=== PATIENT | female | born 1980 | race Caucasian/White ===

== ENCOUNTER 2018-02-26 12:20 | Emergency (ER) | payer SELFPAY | END 2018-02-26 12:21 | disposition left against medical advice (07) | LOC: ED 12:20 | DX: S61.219A Laceration without foreign body of unspecified finger without damage to nail, initial encounter (principal); Z53.21 Procedure and treatment not carried out due to patient leaving prior to being seen by health care provider; X58.XXXA Exposure to other specified factors, initial encounter; Y93.89 Activity, other specified; Y92.89 Other specified places as the place of occurrence of the external cause; Y99.8 Other external cause status ==

== ENCOUNTER 2018-03-04 12:44 | Emergency (ER) | payer SELFPAY ==
[2018-03-04 13:41] LABS: Bacteria,Urine 1+ /HPF (Negative); Bilirubin,Urine NEG (Negative); Blood,Urine MOD (Negative); Color,Urine Yellow (Yellow); Mucus,Urine FEW /HPF; Urobilinogen,Urine < 2.0 mg/dL (<2.0)
[2018-03-04 13:54] LABS: RBC,Urine > 182.0 /HPF (0.0-6.0)
[2018-03-04 14:10] LABS: Hematocrit 42.8 % (30.3-42.9); Hemoglobin 14.2 gm/dl (10.1-14.3); Mean Corpuscular HGB Conc 33 % (30-34); Mean Corpuscular Hemoglobin 27 pg (28-32); Mean Corpuscular Volume 81 fl (79-97); Red Cell Distribution Width 14.4 % (13.2-15.2)
[2018-03-04 14:20] LABS: Platelet Count 266 K/mm3 (140-440)
[2018-03-04 14:26] LABS: Alanine Aminotransferase 15 units/L (7-56); Albumin 4.4 g/dL (3.9-5); BUN/Creatinine Ratio 12; Blood Urea Nitrogen 11 mg/dL (7-17); Calcium 8.9 mg/dL (8.4-10.2); Hemolysis Index 30
[2018-03-04] MEDS ORDERED: NACL 0.9% 1000 ML 1,000 ML IV ONE (14:40)
[2018-03-04] MEDS ORDERED: ZOFRAN IV ONE (14:40)
[2018-03-04] MEDS ORDERED: MORPHINE IV ONE (14:42)
[2018-03-04 15:08] LABS: Basophils % (Manual) 0 % (0.0-1.8); Eosinophils % (Manual) 0 % (0.0-4.3); Total Cells Counted 100
[2018-03-04 15:09] LABS: Anisocytosis 1+; Platelet Estimate Consistent w Auto
--- NOTE | 2018-03-04 15:45 | Emergency Department Report ---
ED Abdominal Pain HPI - General Chief Complaint: Abdominal Pain Stated Complaint: ABD PAIN Time Seen by Provider: 03/04/18 14:34 Source: patient Mode of arrival: Ambulatory Limitations: No Limitations - History of Present Illness Initial Comments: This is a 38-year-old female nontoxic, well nourished in appearance, no acute signs of distress presents to the ED with c/o of abdominal pain with nausea and vomiting that started this morning around 5 AM. Patient stated had a normal bowel movement this morning. Patient denies any radiation of pain. Patient stated pain is described as cramping with level of 3/10 and is diffuse. Patient denies any urinary symptoms. Patient denies any chest pain, shortness of breathe, fever, chills, headache, numbness or tingling. Patient denies any allergies. PMH includes appendectomy. Patient stated she is currently on her menstrual cycle. MD Complaint: abdominal pain -: This morning Location: diffuse Radiation: none Migration to: no migration Severity scale (0 -10): 3 Quality: cramping Consistency: constant Improves With: nothing Worsens With: nothing Associated Symptoms: nausea, vomiting. denies: diarrhea, fever, chills, constipation, dysuria, hematemesis, hematochezia, melena, hematuria, anorexia, syncope - Related Data LMP Date: 03/04/18 LMP (females 10-50): this week Home Medications Medication Instructions Recorded Confirmed Last Taken Pnv Plus Multivit Tab 1 tab PO DAILY 10/25/15 10/25/15 Unknown Previous Rx's Medication Instructions Recorded Last Taken Type Labetalol [Normodyne TAB] 200 mg PO BID #60 tablet 10/25/15 Unknown Rx Allergies Allergy/AdvReac Type Severity Reaction Status Date / Time No Known Allergies Allergy Verified 05/29/15 00:33 ED Review of Systems ROS: Stated complaint: ABD PAIN Other details as noted in HPI Constitutional: denies: chills, fever Eyes: denies: eye pain, eye discharge, vision change ENT: denies: ear pain, throat pain Respiratory: denies: cough, shortness of breath, wheezing Cardiovascular: denies: chest pain, palpitations Endocrine: no symptoms reported Gastrointestinal: abdominal pain, nausea, vomiting. denies: diarrhea Genitourinary: denies: urgency, dysuria, discharge Musculoskeletal: denies: back pain, joint swelling, arthralgia Skin: denies: rash, lesions Neurological: denies: headache, weakness, paresthesias Psychiatric: denies: anxiety, depression Hematological/Lymphatic: denies: easy bleeding, easy bruising ED Past Medical Hx - Past Medical History Hx Hypertension: No Hx Congestive Heart Failure: No Hx Diabetes: No Hx Deep Vein Thrombosis: No Hx Renal Disease: No Hx Sickle Cell Disease: No Hx Seizures: No Hx Asthma: No Hx COPD: No Hx HIV: No - Surgical History Hx Appendectomy: Yes - Social History Smoking Status: Never Smoker Substance Use Type: None - Medications Home Medications: Home Medications Medication Instructions Recorded Confirmed Last Taken Type Labetalol [Normodyne TAB] 200 mg PO BID #60 tablet 10/25/15 Unknown Rx Pnv Plus Multivit Tab 1 tab PO DAILY 10/25/15 10/25/15 Unknown History ED Physical Exam - General Limitations: No Limitations General appearance: alert, in no apparent distress - Head Head exam: Present: atraumatic, normocephalic - Eye Eye exam: Present: normal appearance Pupils: Present: normal accommodation - ENT ENT exam: Present: normal exam, mucous membranes moist - Neck Neck exam: Present: normal inspection, full ROM. Absent: tenderness, meningismus, lymphadenopathy - Respiratory Respiratory exam: Present: normal lung sounds bilaterally. Absent: respiratory distress, wheezes, rales, rhonchi, stridor, chest wall tenderness, accessory muscle use, decreased breath sounds, prolonged expiratory - Cardiovascular Cardiovascular Exam: Present: regular rate, normal rhythm, normal heart sounds. Absent: bradycardia, tachycardia, irregular rhythm, systolic murmur, diastolic murmur, rubs, gallop - GI/Abdominal GI/Abdominal exam: Present: soft, tenderness (diffuse), normal bowel sounds. Absent: distended, guarding, rebound, rigid, diminished bowel sounds - Expanded GI/Abdominal Exam Expanded GI/Abdominal exam: Absent: psoas sign, obturator sign, heel tap sign, Epperson's sign, Rovsing's sign, tenderness at Mcburney's Point, ascites - Rectal Rectal exam: Present: deferred - Extremities Exam Extremities exam: Present: normal inspection, full ROM, normal capillary refill. Absent: tenderness - Back Exam Back exam: Present: normal inspection, full ROM. Absent: tenderness, CVA tenderness (R), CVA tenderness (L), muscle spasm, paraspinal tenderness, vertebral tenderness, rash noted - Neurological Exam Neurological exam: Present: alert, oriented X3, normal gait - Psychiatric Psychiatric exam: Present: normal affect, normal mood - Skin Skin exam: Present: warm, dry, intact, normal color. Absent: rash ED Course Vital Signs 03/04/18 03/04/18 03/04/18 12:48 14:31 16:53 Temperature 97.9 F 98.3 F Pulse Rate 59 L 72 Respiratory 16 18 15 Rate Blood Pressure 155/79 114/76 O2 Sat by Pulse 100 99 Oximetry - Reevaluation(s) Reevaluation #1: 03/04/18 15:47 Patient is speaking in full sentences with no signs of distress noted. - Consultations Consultation #1: Patient has been consulted with Dr. White about patient history, physical exam , and CT results/labs and examined and screened patient and agrees to ED plan of care and discharge plan of care. Consultation #2: 03/04/18 16:59 Dr. Solorio urologist from [facility] was consulted about patient history, physical exam, and CT results and stated to transfer patient for possible surgery. ED Medical Decision Making - Lab Data Result diagrams: 03/04/18 13:51 03/04/18 13:51 - Medical Decision Making This is a 38-year-old female that presents with ureteralm stone with hydroureteroneophrosis. Patient stable was examined by me and Dr. White. Labs obtained with elevated WBC. UA with slight UTI. Patient received [address] with contrast of abdomen obtained and dictated by radiologist. Dr. Solorio consulted from [facility] and accepts patient to his services. Patient is notified of the CT report with no questions noted by the patient. Patient received zoforan, Toradol and 1L of Normal saline. Patient put on NPO. At time of transfer, the patient does not seem toxic or ill in appearance. No acute signs of distress noted. Patient agrees to treatment plan of care. No further questions noted by the patient. Critical care attestation.: If time is entered above; I have spent that time in minutes in the direct care of this critically ill patient, excluding procedure time. ED Disposition Clinical Impression: Ureteral stone, Hydroureteronephrosis Nausea & vomiting Qualifiers: Vomiting type: unspecified Vomiting Intractability: non-intractable Qualified Code(s): R11.2 - Nausea with vomiting, unspecified UTI (urinary tract infection) Qualifiers: Urinary tract infection type: site unspecified Hematuria presence: with hematuria Qualified Code(s): N39.0 - Urinary tract infection, site not specified Disposition: DC/TX-70 ANOTHER TYPE HLTHCARE Is pt being admited?: No Condition: Stable
--- NOTE | 2018-03-04 16:18 | Cat Scan Report ---
FINAL REPORT EXAM: CT ABDOMEN PELVIS W CON HISTORY: right sided abdominal pain TECHNIQUE: Axial images were performed from the lung bases to the pubic symphysis. Multiplanar reformats are performed on the acquisition scanner. Comparison: None FINDINGS: Clear lung bases. Diffuse fatty infiltrated liver is not significantly enlarged. There is a lamellated 2.3 centimeter stone in the gallbladder. Gallbladder is moderately distended. No pericholecystic fluid or gallbladder wall thickening is identified. No intra or extrahepatic biliary ductal dilatation is seen. There are no focal hepatic lesions. There is a small hiatal hernia. Normal enhancement and appearance of the spleen, pancreas, bilateral adrenal glands and bilateral kidneys. There is mild right perinephric stranding and mild right hydroureteronephrosis to the level of 1.2 x 0.6 centimeter proximal ureteral stone projecting at the level of the right L3/L4 interspace. Incidentally identified retro aortic left renal vein. Normal terminal ileum. Appendix not discretely identified. No inflammation in the right lower quadrant. Nonobstructive bowel pattern. Mild right fecal debris. Small retroperitoneal lymph nodes. Age-appropriate prominent [employer] structures. Normally anteverted uterus. Trace free pelvic fluid. Delayed phase images demonstrate normal excretion of the contrast bilaterally without significant delay in contrast excretion of the right kidney. IMPRESSION: 1.2 x 0.6 centimeter irregular proximal right ureteral stone causing mild right hydroureteronephrosis and mild perinephric stranding. Early forniceal rupture cannot be excluded. No delay in contrast excretion on the delayed phase images from the right kidney. 2.3 centimeter lamellated gallstone within the gallbladder without evidence for gallbladder wall thickening or biliary ductal dilatation. No pericholecystic fluid. Fatty infiltrated liver. Appendix is not seen. Age-appropriate prominent [employer] structures.
[2018-03-04] MEDS ORDERED: ROCEPHIN/NS 2 GM/100 ML 2 GM/100 ML BAG IV ONE (16:26)
[2018-03-04 16:59] VITALS: BP 114/76
[2018-03-04] MEDS ORDERED: cefTRIAXone 2 GM in NACL 0.9% 20 ML IV ONE (17:00)
== END 2018-03-04 18:10 | disposition other institution (70) ==
LOC: ED 12:44
DX: N13.2 Hydronephrosis with renal and ureteral calculous obstruction (principal); N39.0 Urinary tract infection, site not specified; R11.2 Nausea with vomiting, unspecified; Z90.49 Acquired absence of other specified parts of digestive tract
CPT/HCPCS: 36415; 74177; 80053; 81001; 84703; 85007; 85025; 96361; 96365; 96375; 99285; J0696; J2270; J2405; J7030; Q9967